=== PATIENT | female | born 1965 | race Caucasian/White ===

== ENCOUNTER 2024-01-15 14:11 | Emergency (ER) | payer BC, SELFPAY ==
[2024-01-15 14:23] VITALS: BP 151/70
[2024-01-15 14:41] LABS: % Basophils 0.5 % (0-2); % Eosinophils 0.3 % (0-6); % Immature Granulocytes 0.3 % (0-0.5); % Lymphocytes 15.3 % (20.5-51.1); % Monocytes 9.4 % (1.7-9.3); % Neutrophils 74.2 % (42.2-75.2); Absolute Lymphocytes 0.6 10^3/uL (1.2-3.4); Absolute Monocytes 0.4 10^3/uL (0.1-0.6); Absolute Neutrophils 2.9 10^3/uL (1.4-6.5); Hematocrit 38.7 % (37.0-47.0); Hemoglobin 13.2 g/dL (12.0-16.0); Mean Corp Hgb Conc. 34.1 g/dL (33.0-37.0); Mean Corpuscular Hgb 31.1 pg (27.0-31.0); Mean Corpuscular Volume 91.3 fL (81.0-99.0); Mean Platelet Volume 9.5 fL (7.4-10.4); Nucleated Red Blood Cells % 0 %; Platelet Count 226 10^3/uL (130-400); Red Blood Cell Count 4.24 10^6/uL (4.20-5.40); Red Cell Dist. Width 12.2 % (11.5-14.5); White Blood Cell Count 3.9 10^3/uL (4.8-10.8)
[2024-01-15 14:53] LABS: ALT (SGPT) 35 U/L (0-35); AST (SGOT) 41 U/L (14-36); Albumin 4.2 g/dl (3.5-5.0); Alkaline Phosphatase 81 U/L (38-126); Blood Urea Nitrogen 17 mg/dl (7-17); Calcium 9.1 mg/dl (8.4-10.2); Carbon Dioxide 26 mmol/L (22-30); Chloride 106 mmol/L (98-107); Glucose 117 mg/dl (70-99); Lipase 353 U/L (23-300); Potassium 3.3 mmol/L (3.5-5.1); Sodium 141 mmol/L (135-145); Total Bilirubin 0.5 mg/dl (0.2-1.3); Total Protein 6.6 g/dl (6.3-8.2); eGFR > 60.00
[2024-01-15] MEDS: NSS 1000 IV ×2 (14:55→16:59)
[2024-01-15] MEDS: TORADOL 30 MG IV (15:00)
[2024-01-15] MEDS: ZOFRAN 4 MG IV (15:00)
--- NOTE | 2024-01-15 16:07 | ED.GENMED ---
History of Present Illness
General
Chief Complaint: Abdominal Pain
Source: patient
Time Seen by Provider: 01/15/24 14:35
Travel History
Have you had any contact with someone who has COVID-19?: No
Do you have any symptoms of coronavirus? Fever > 100 degrees, chills, cough, shortness of breath, sore throat, loss of taste or smell, muscle aches, or headache?: No
History of Present Illness
History of Present Illness:
58-year-old female with past medical history of breast cancer, GERD, hyperlipidemia presenting to the emergency department for evaluation of 2 days of nausea vomiting and diarrhea as well as diminished p.o. intake. No known sick contacts, patient
was in [place] recently 3 weeks ago and returned home with COVID which symptoms started to weeks ago. She denies any respiratory complaints. Did not take anything for symptoms prior to arrival. No other concerns at this time.
Past History
Past History
ED Past Medical History: Cancer (Breast, bilateral mastectomies, taking Letrosol), GERD and Hypercholesterolemia
ED Past Surgical History: , Gynecological (hysterectomy, bilateral oophorectomy) and Tonsilectomy
Social History
Tobacco: Non-smoker
Alcohol: Occasional
Drug: None
Personal:
Living: with family
Employment: Employed
Review of Systems
Review of Systems
All Other Systems: ROS reviewed and negative except as documented in HPI and ROS
Phy Exam
Physical Exam
Physical Exam:
GENERAL: Alert , in no apparent distress
EYE: clear conjunctiva b/l
HEAD: NCAT
ENT: mmm.
CARDIAC: Regular rate and rhythm .
LUNGS: Clear breath sounds bilaterally, no acute respiratory distress, no wheezes/rales/rhonchi
ABDOMEN: Soft, without focal tenderness, no r/g, no cvat
NEUROLOGICAL: Alert and oriented
SKIN: Warm and dry, skin intact.
MUSCULOSKELETAL: well perfused.
PSYCH: Normal and appropriate interaction.
Scores
Heart Failure Risk
Heart Failure Risk Score: Not Applicable
Heart Score for Chest Pain Patients
STEMI patient?: Not applicable
Withdrawal Assessment of Alcohol
Withdrawal Assessment Completed?: Not applicable
Course
Orders/Labs/Results
Orders:
Orders
01/15/24 14:31
Complete Blood Count/With Diff Urgent
Comprehensive Metabolic Panel Urgent
Lipase Urgent
01/15/24 14:49
0.9% Sodium Chloride 1000 ml [Nss] 1,000 ml IV BOLUS
Ondansetron Injectable [Zofran] 4 mg IV NOW STA
01/15/24 14:58
Ketorolac [Toradol] 30 mg IV NOW STA
01/15/24 16:10
Potassium Chloride [KCl] 20 meq PO NOW STA
01/15/24 16:44
Diphenhydramine [Benadryl] 25 mg IV NOW STA
Metoclopramide [Reglan] 10 mg IV NOW STA
01/15/24 16:57
0.9% Sodium Chloride 1000 ml [Nss] 1,000 ml IV BOLUS
Abnormal Lab Results
01/15/24
14:31
WBC 3.9 L 10^3/uL
(4.8-10.8)
MCH 31.1 H pg
(27.0-31.0)
Absolute Lymphs (auto) 0.6 L 10^3/uL
(1.2-3.4)
Lymphocytes % 15.3 L %
(20.5-51.1)
Monocytes % 9.4 H %
(1.7-9.3)
Potassium 3.3 L mmol/L
(3.5-5.1)
Glucose 117 H mg/dl
(70-99)
AST 41 H U/L
(14-36)
Lipase 353 H U/L
(23-300)
01/15/24 14:31
01/15/24 14:31
Vital Signs
Initial and Last Documented VS:
Initial Vital Signs
Temp Pulse Resp BP Pulse Ox
98.1 F 75 18 151/70 98
01/15/24 14:23 01/15/24 14:23 01/15/24 14:23 01/15/24 14:23 01/15/24 14:23
Last Documented Vital Signs
Temp Pulse Resp BP Pulse Ox
98.1 F 66 17 151/70 98
01/15/24 14:23 01/15/24 18:09 01/15/24 18:09 01/15/24 14:23 01/15/24 18:09
MDM/Problems Addressed
Differential Diagnosis Includes:
Gastroenteritis, colitis, post-COVID syndrome, pancreatitis
MDM/Problems Addressed:
58-year-old female presenting emergency department for evaluation of nausea vomiting diarrhea x 2 days. Recent COVID illness 2 weeks ago but no symptoms resolved. Patient is in no acute distress and hemodynamically stable. Given the persistent GI
loss we will check labs and treat with fluids, Zofran and Toradol. Reassessment following.
*Pulse Oximetry
Patient hypoxic: no
*Critical Care Note
Total Time (30-74mins, 75-104mins- exclusive of procedures): Not Applicable
Comment
Comment:
Patient's lab work reveals a mild leukopenia likely signifying viral etiology. Potassium is 3.3 secondary to persistent volume loss from vomiting and diarrhea. Lipase is also mildly elevated at 353 which is likely related to the persistent
vomiting and reactive. Will orally replete potassium
Patient Management
Escalation/DeEscalation of care consider admission/obs:
On secondary reevaluation patient still noting mild headache and nausea. Reglan and Benadryl ordered in addition to second dose of normal saline.
On third reevaluation patient notes significant improvement of all symptoms and feels well enough to be discharged home. Advise she increase potassium in her diet although I do suspect this is mainly from the vomiting and diarrhea and will likely
be easily repleted. Patient aware of return precautions. Otherwise stable for discharge home
ED Attending Note
-
Portions of this chart may have been created with voice recognition software.� Occasional wrong word or��sound alike� substitutions may have occurred due to the inherent limitations of voice recognition software.
Discharge Plan
Departure
Patient Disposition: Home (Routine Discharge)
Date of Disposition: 01/15/24
Time of Disposition: 18:15
Patient with high blood pressure during this ER visit?: Yes
Discharge Problem:
Nausea and vomiting, Diarrhea
Instructions: Viral gastroenteritis in adults
Prescriptions:
New
ondansetron 4 mg tablet,disintegrating
4 mg PO TIDPRN PRN (Reason: nausea/vomiting) Qty: 10 0RF
No Action
Pantoprazole
20 mg PO DAILY
Rosuvastatin Calcium
40 mg PO DAILY
letrozole 2.5 mg Tablet
2.5 mg PO DAILY
Fish Oil Capsule
1,000 mg PO DAILY
oxycodone-acetaminophen [Endocet] 5-325 mg tablet
1 tab PO Q6H PRN (Reason: pain) Qty: 7 0RF
methylprednisolone [Medrol (Julian)] 4 mg tablets,dose pack
See Rx Instructions .ROUTE .COMPLEX Qty: 21 0RF
Rx Instructions:
orally per package directions
Referrals:
UNKNOWN - PT DOES,NOT KNOW [Family Provider] -
Interventions
Interventions:
*Risk Screen - Suicide Last Done: 01/15/24 14:23
*General Assessment Last Done: 01/15/24 14:23
*Neglect/Abuse Screening Last Done: 01/15/24 14:23
ED- Fall Risk Assessment Last Done: 01/15/24 14:48
*ED COVID-19 Vaccine History Last Done: 01/15/24 14:48
*Nursing Disposition Last Done: 01/15/24 18:21
LW-Xhqyxm-Aaohiexrko Assessment Last Done: 01/15/24 14:48
Discharge Date and Time
Discharge Date/Time: 01/15/24 18:23
Print Language: MAORI
[2024-01-15] MEDS: KCL 20 MEQ PO (16:19)
[2024-01-15] MEDS: REGLAN 10 MG IV (16:49)
[2024-01-15] MEDS: BENADRYL 25 MG IV (16:49)
== END 2024-01-15 18:23 | disposition home or self-care (01) ==
LOC: EMR 14:11
PROVIDERS: Emergency Medicine; EMERGENCY PHYSICIAN Student in an Organized Health Care Education/Training Program
DX: R11.2 Nausea with vomiting, unspecified (principal); R19.7 Diarrhea, unspecified; E78.00 Pure hypercholesterolemia, unspecified; K21.9 Gastro-esophageal reflux disease without esophagitis; Z85.3 Personal history of malignant neoplasm of breast; Z90.13 Acquired absence of bilateral breasts and nipples; Z90.710 Acquired absence of both cervix and uterus; Z90.722 Acquired absence of ovaries, bilateral
CPT/HCPCS: 99283; 96374; 96375; 96361; 80053; 83690; 85025

== ENCOUNTER → 2025-06-17 10:20 | Outpatient (REF) | payer BC, SELFPAY | LOC: RAD 10:20 | PROVIDERS: ATTENDING PHYSICIAN Physician Assistant Medical; FAMILY PHYSICIAN Nurse Practitioner Family | DX: R13.10 Dysphagia, unspecified (principal) | CPT/HCPCS: 74221 ==